=== PATIENT | male | born 1965 | race Caucasian/White ===

== ENCOUNTER → 2020-11-19 11:10 | Outpatient (CLI) | payer OTHER, SELFPAY ==
[2020-11-19 11:59] LABS: COVID19 -Nasal RAPID Negative (Negative)
== END ==
PROVIDERS: Visit Provider Family Medicine Sleep Medicine
DX: Z20.822 Contact with and (suspected) exposure to COVID-19 (principal)
CPT/HCPCS: 87635; C9803

== ENCOUNTER → 2021-02-05 12:32 | Outpatient (CLI) | payer OTHER, SELFPAY ==
--- NOTE | 2021-02-05 12:35 | DI.RAD.S_ITS ---
P at [facility]URE: XR FOOT LT MIN 3V INDICATIONS: Foot Pain TECHNIQUE: 3 views of the foot were acquired. COMPARISON: None. FINDINGS: Bones: No fractures or dislocations. No suspicious bony lesions. Soft tissues: No tibiotalar joint effusion. Achilles tendon appears normal. IMPRESSION: No evidence acute bony abnormality of the left foot Dictated by: Chivo Escamilla M.D. on 02/05/2021 at 13:41 Approved by: Chivo Escamilla M.D. on 02/05/2021 at 13:42
== END ==
PROVIDERS: Referring Provider Physician Assistant; Visit Provider Physician Assistant
DX: M79.673 Pain in unspecified foot (principal)
CPT/HCPCS: 73630